=== PATIENT | male | born 1960 | race Caucasian/White ===

== ENCOUNTER → 2023-10-28 11:41 | Outpatient (REF) | payer OTHER, SELFPAY | LOC: HWRAD 11:41 | PROVIDERS: ATTENDING PHYSICIAN Physician Assistant Medical | DX: R10.32 Left lower quadrant pain (principal) | CPT/HCPCS: 74177; Q9967 ==

== ENCOUNTER 2023-12-03 02:31 | Emergency (ER) | payer OTHER, SELFPAY ==
[2023-12-03 02:34] VITALS: BP 151/94
[2023-12-03] MEDS: TORADOL 60 MG IM (03:05)
--- NOTE | 2023-12-03 03:09 | ED.GENMED ---
History of Present Illness
General
Chief Complaint: Musculo-Skeletal Complaint
Source: patient
Exam Limitations: none
Time Seen by Provider: 12/03/23 02:43
Nursing documentation reviewed up to this point in time: agreed with
Travel History
Have you had any contact with someone who has COVID-19?: No
Do you have any symptoms of coronavirus? Fever > 100 degrees, chills, cough, shortness of breath, sore throat, loss of taste or smell, muscle aches, or headache?: No
History of Present Illness
History of Present Illness:
The patient is a pleasant 63-year-old man who reports that he was shoveling yesterday, overdid it, and now has spasming on the right side of his neck. Patient reports he has had this before in the past. He denies any tingling or numbness down the
right arm. He denies injury. He reports he tried Motrin with little relief. Patient reports he has had similar symptoms in the past and Toradol has helped with the discomfort.
Past History
Past History
ED Past Medical History: HTN, Hypercholesterolemia and Other (Diverticulitis, migraines, narcolepsy)
ED Past Surgical History: Bowel resection, Cholecystectomy and Orthopedic
Social History
Tobacco: Non-smoker
Alcohol: None
Drug: None
Personal:
Living: with family
Employment: Retired
Family History
Family History: Other
Review of Systems
Review of Systems
Allergies reviewed?: Yes
All Other Systems: ROS reviewed and negative except as documented in HPI and ROS
Constitutional: Reports no symptoms
EENT: Reports no symptoms
Respiratory: Reports no symptoms
Cardiac: Reports no symptoms
ABD/GI: Reports no symptoms
: Reports no symptoms
Musculoskeletal: Reports muscle pain and muscle stiffness
Skin: Reports no symptoms
Neurological: Reports no symptoms
Endocrine: Reports no symptoms
Hematologic/Lymphatic: Reports no symptoms
Psychiatric: Reports no symptoms
Phy Exam
Physical Exam
Physical Exam:
Physical Exam
General: Patient is slightly looking towards the left and appears to have right-sided neck stiffness
Neck: supple. No midline spinal tenderness of cervical spine. No soft tissue swelling or deformity of soft tissue neck. Patient reports soft tissue tenderness along right paracervical and trapezius muscle area
Heart: s1/s2 regular rate and rhythm, no murmur. equal radial pulses.
Lungs: no acute respiratory distress. clear bilaterally
Abdomen: normal bowel sounds. not tender. no CVAT
Neuro: alert and oriented. no focal neurological deficits. 5 out of 5 strength in all extremities.
Skin: no rash
Psychiatric: well kept. interactive and cooperative
Extremities: no edema. no calf tenderness. negative homans. good distal pulses
Course
Orders/Labs/Results
Orders:
Orders
12/03/23 03:01
Ketorolac [Toradol] 60 mg IM NOW STA
12/03/23 03:54
Diazepam [Valium] 5 mg PO NOW STA
Vital Signs
Initial and Last Documented VS:
Initial Vital Signs
Temp Pulse Resp BP Pulse Ox
98.7 F 77 18 151/94 98
12/03/23 02:34 12/03/23 02:34 12/03/23 02:34 12/03/23 02:34 12/03/23 02:34
Last Documented Vital Signs
Temp Pulse Resp BP Pulse Ox
98.7 F 77 18 151/94 98
12/03/23 02:34 12/03/23 02:34 12/03/23 02:34 12/03/23 02:34 12/03/23 02:34
MDM/Problems Addressed
Differential Diagnosis Includes:
Muscle spasm, torticollis, cervical spine fracture
MDM/Problems Addressed:
Patient presents with acute left-sided neck stiffness
Acute Exacerbation and/or Progression of Chronic Illness:
Patient is acutely hypertensive but there is no significant hypertension and I suspect it is related to some degree of pain
Acute Exacerbation and/or Progression of Chronic Illness: HTN
*Pulse Oximetry
Patient hypoxic: no
*EKG
Interpreted by ED Provider?: NA
*Field Naturalist Interpretation
Rate: Field Naturalist- N/A
*Critical Care Note
Total Time (30-74mins, 75-104mins- exclusive of procedures): Not Applicable
Data Reviewed
Source: patient
Patient Management
Social determinants of health affecting care: Living situation and Strong social support
Update Note
Update Note:
4:25 AM patient reports he feels much better. He is up walking around steadily. There are no signs of neurological deficits such as weakness or numbness in his arms. Patient has strong pulses in his bilateral upper extremities.
ED Attending Note
-
Portions of this chart may have been created with voice recognition software.� Occasional wrong word or��sound alike� substitutions may have occurred due to the inherent limitations of voice recognition software.
Discharge Plan
Departure
Patient Disposition: Home (Routine Discharge)
Date of Disposition: 12/03/23
Time of Disposition: 04:23
Patient with high blood pressure during this ER visit?: Yes
Condition: Good
Covid-19: Not Applicable
Discharge Problem:
Muscle spasm, Acute neck pain
Instructions: Muscle Spasm ED, Neck Pain ED, BLOOD PRESSURE
Prescriptions:
New
diazepam [Valium] 5 mg tablet
5 mg PO BID PRN (Reason: muscle spasm) Qty: 7 0RF
No Action
testosterone cypionate 200 MG/1 ML oil
0.4 ml IM .EVERY 2 WEEKS
rosuvastatin 5 MG tablet
5 mg PO DAILY
Patient Comments:
03/08/19: Patient takes in the morning
zolpidem 10 MG tablet
10 mg PO HS
ibuprofen 600 mg tablet
600 mg PO Q6H PRN (Reason: pain) Qty: 20 0RF
lisinopril 2.5 mg Tablet
2.5 mg PO DAILY
Referrals:
Jennifer Mackenzie PA-C [Family Provider] -
Activity Restrictions/Additional Instructions:
Take 600 mg of ibuprofen with food every 6-8 hours for pain. To relieve the spasming, you can take Valium as needed for severe spasming. Please do not combine Valium with any other sedative or alcohol. Do not drive while taking Valium
Interventions
Interventions:
*Risk Screen - Suicide Last Done: 12/03/23 02:34
*Neglect/Abuse Screening Last Done: 12/03/23 02:34
ED- Fall Risk Assessment Last Done: 12/03/23 02:34
*ED COVID-19 Vaccine History Last Done: 12/03/23 02:34
ED-Musculoskeletal Assessment Last Done: 12/03/23 02:50
[2023-12-03] MEDS: VALIUM 5 MG PO (04:10)
[2023-12-03 04:29] VITALS: BP 140/78
== END 2023-12-03 04:29 | disposition home or self-care (01) ==
LOC: EMR 02:31
PROVIDERS: EMERGENCY PHYSICIAN Emergency Medicine; FAMILY PHYSICIAN Physician Assistant Medical
DX: M62.838 Other muscle spasm (principal); M54.2 Cervicalgia; I10 Essential (primary) hypertension; E78.00 Pure hypercholesterolemia, unspecified; G47.419 Narcolepsy without cataplexy
CPT/HCPCS: 99282; 96372

== ENCOUNTER → 2024-08-04 10:02 | Outpatient (REF) | payer OTHER, SELFPAY | LOC: HWRCS 10:02 | PROVIDERS: ATTENDING PHYSICIAN Internal Medicine Cardiovascular Disease; FAMILY PHYSICIAN Nurse Practitioner Adult Health | DX: I45.2 Bifascicular block (principal) | CPT/HCPCS: 93306 ==

== ENCOUNTER → 2024-11-28 10:35 | Outpatient (REF) | payer OTHER, SELFPAY | LOC: HWLAB 10:35 | PROVIDERS: ATTENDING PHYSICIAN Plastic Surgery; FAMILY PHYSICIAN Physician Assistant Medical; REFERRING PHYSICIAN Internal Medicine Cardiovascular Disease | DX: Z01.818 Encounter for other preprocedural examination (principal) | CPT/HCPCS: 93005 ==

== ENCOUNTER → 2025-03-06 08:55 | Outpatient (REF) | payer OTHER, SELFPAY | LOC: HWRAD 08:55 | PROVIDERS: ATTENDING PHYSICIAN Otolaryngology; FAMILY PHYSICIAN Physician Assistant Medical | DX: J32.9 Chronic sinusitis, unspecified (principal) | CPT/HCPCS: 70486 ==